=== PATIENT | female | born 1970 | race American Indian/Alaskan Native ===

== ENCOUNTER 2022-02-20 14:07 | Emergency (ER) | payer OTHER ==
[~2022-02-20] VITALS: Ht 167.6 cm; Wt 125.6 kg
[~2022-02-20 14:07] MED LIST: AMIT10 PO; AMIT50 PO; AMOCLA875 PO; ASCO500 PO; Antivert25 MG PO; Ativan1 MG PO; BUSP10 PO; CALCAVITD PO; CRUTCH4 USE; CYCL10 PO; DICL25ER PO; DULO60 PO; FISH1000 PO; FLECTOR PATCH; Flonase 0.05% N16 GM; GABA300 PO; LISI5 PO; LOVA40 PO; MULVITMINF PO; NAPR500 PO; OMEP40CA12 PO; OXYACE5T PO; OXYB5 PO; PRAV20 PO; PRED20 PO; QUET200 PO; RISP.5 PO; TOPI25 PO; TRAM50 PO; Tessalon Perle100 MG PO; VARE1 PO; Zithromax250 MG PO; Zofran Odt4 MG SL
[2022-02-20 14:52] LABS: BASOPHILS ABSOLUTE AUTO 0.09 K/mm3 (0.00-0.23); BASOPHILS PERCENT AUTO 1 % (0-2); EOSINOPHILS ABSOLUTE AUTO 0.23 K/mm3 (0.00-0.68); EOSINOPHILS PERCENT AUTO 2 % (0-6); Hematocrit 47.1 % (33.0-51.0); Hemoglobin 15.8 g/dL (11.5-16.0); IMMATURE GRAN ABSOLUTE AUTO 0.03 K/mm3 (0.00-0.10); IMMATURE GRAN PERCENT AUTO 0 % (0-1); LYMPHOCYTES ABSOLUTE AUTO 3.09 K/mm3 (0.84-5.20); LYMPHOCYTES PERCENT AUTO 30 % (21-46); MONOCYTES ABSOLUTE AUTO 0.55 K/mm3 (0.16-1.47); MONOCYTES PERCENT AUTO 5 % (4-13); Mean Corpuscular HGB 29.8 pg (26.0-34.0); Mean Corpuscular HGB Conc 33.5 g/dL (31.5-36.5); Mean Corpuscular Volume 89 fL (80-100); Mean Platelet Volume 10.7 fL (9.1-12.4); NEUTROPHILS ABSOLUTE AUTO 6.16 K/mm3 (1.96-9.15); NEUTROPHILS PERCENT AUTO 61 % (41-73); Platelet Count 375 K/mm3 (150-400); RDW Coefficient Variation 13.2 % (11.7-14.2); RDW Standard Deviation 43.4 fL (35.1-46.3); White Blood Cell Count 10.15 K/mm3 (4.00-11.30)
[2022-02-20 15:26] LABS: Albumin, Blood 3.7 g/dL (3.4-5.0); Albumin/Globulin Ratio 0.9 (0.8-1.8); Bilirubin, Total 0.5 mg/dL (0.1-1.0); Bun/Creatinine Ratio 22.5 (12.0-20.0); Calcium, Blood 9.5 mg/dL (8.5-10.1); Creatinine, Blood 0.58 mg/dL (0.40-1.00); Globulin, Blood 4.1 g/dL (2.2-4.0); Total Protein, Blood 7.8 g/dL (6.4-8.2)
[2022-02-20] MEDS ORDERED: IBUP800 PO (19:12)
[2022-02-20] MEDS ORDERED: PROM25 PO (19:12)
== END 2022-02-20 19:25 | disposition home or self-care (01) ==
LOC: ER 14:07
PROVIDERS: Physician Assistant
DX: G43.909 Migraine, unspecified, not intractable, without status migrainosus (principal); F17.210 Nicotine dependence, cigarettes, uncomplicated; Z79.52 Long term (current) use of systemic steroids; Z79.899 Other long term (current) drug therapy
CPT/HCPCS: 36415; 70450; 80053; 83690; 85025; J0780; J1200; J1885; J2405

== ENCOUNTER 2023-02-24 04:04 | Observation (INO) | payer OTHER ==
[~2023-02-24] VITALS: Ht 167.6 cm; Wt 119.9 kg
[2023-02-24] VITALS (9 sets, daily range): BP systolic 99–154; BP diastolic 74–107
[~2023-02-24 04:04] MED LIST changes: +IBUP800 PO; +PROM25 PO
[2023-02-24 04:51] LABS: BASOPHILS ABSOLUTE AUTO 0.09 K/mm3 (0.00-0.23); BASOPHILS PERCENT AUTO 1 % (0-2); EOSINOPHILS ABSOLUTE AUTO 0.59 K/mm3 (0.00-0.68); EOSINOPHILS PERCENT AUTO 4 % (0-6); Hematocrit 43.8 % (33.0-51.0); Hemoglobin 14.3 g/dL (11.5-16.0); IMMATURE GRAN ABSOLUTE AUTO 0.07 K/mm3 (0.00-0.10); IMMATURE GRAN PERCENT AUTO 1 % (0-1); LYMPHOCYTES ABSOLUTE AUTO 3.56 K/mm3 (0.84-5.20); LYMPHOCYTES PERCENT AUTO 25 % (21-46); MONOCYTES ABSOLUTE AUTO 0.85 K/mm3 (0.16-1.47); MONOCYTES PERCENT AUTO 6 % (4-13); Mean Corpuscular HGB 29.2 pg (26.0-34.0); Mean Corpuscular HGB Conc 32.6 g/dL (31.5-36.5); Mean Corpuscular Volume 89 fL (80-100); Mean Platelet Volume 10.3 fL (9.1-12.4); NEUTROPHILS ABSOLUTE AUTO 9.05 K/mm3 (1.96-9.15); NEUTROPHILS PERCENT AUTO 64 % (41-73); Platelet Count 370 K/mm3 (150-400); RDW Coefficient Variation 13.9 % (11.7-14.2); White Blood Cell Count 14.21 K/mm3 (4.00-11.30)
[2023-02-24 05:18] LABS: Albumin, Blood 3.6 g/dL (3.4-5.0); Albumin/Globulin Ratio 0.9 (0.8-1.8); Bilirubin, Total 0.2 mg/dL (0.1-1.0); Bun/Creatinine Ratio 27.4 (12.0-20.0); Calcium, Blood 9.1 mg/dL (8.5-10.1); Creatinine, Blood 0.66 mg/dL (0.40-1.00); Globulin, Blood 4.2 g/dL (2.2-4.0); Potassium, Blood 4.1 mmol/L (3.5-5.5); Total Protein, Blood 7.8 g/dL (6.4-8.2)
[2023-02-24] MEDS ORDERED: ATORVASTATIN CA40 M1 PO (08:15)
[2023-02-24] MEDS ORDERED: PIOG30 PO (08:16)
[2023-02-24] MEDS ORDERED: METF500 PO (08:16)
[2023-02-24] MEDS ORDERED: REMERON15 M3 PO (08:17)
[2023-02-24] MEDS ORDERED: NAC600 MG PO (08:17)
[2023-02-24] MEDS ORDERED: TRAZ150T57 PO (08:18)
[2023-02-24] MEDS ORDERED: VENL75ER PO (08:18)
[2023-02-24] MEDS ORDERED: VENL37.5ER PO (08:18)
[2023-02-24] MEDS ORDERED: LORA.5 PO (08:19)
[2023-02-24 09:46] LABS: Anti-Xa UFH, PHA Monitoring <0.10 IU/mL; International Normalized Ratio 0.96; Prothrombin Time Results 10.1 Sec (9.7-11.5)
--- NOTE | 2023-02-24 12:09 | NUR ---
PATIENT ADMIT TO PCU 18. ABLE TO STAND AND TRANSFER IND. DENIES NUMBNESS/TINGLING. PERRLA. ALERT AND ORIENTED X4. ON ROOM AIR SATING ABOVE 95%. PATIENT STATES SHE IS A CURRENT EVERYDAY SMOKER, SMOKING 10-15 CIGERATTES PER DAY. CALLED PLACED TO DR. 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 PATIENT DENIES HAVING ANY CIGARETTES OR LIGHTERS/IGNIGTION SOURCES WITHIN PERSONAL BELONGINGS. LUNGS SOUNDING CLEAR AND DIM IN BASES. EVEN AND UNLABORED RESPIRTATIONS. CLAIMS SHE USED TO HAVE A CPAP BUT DID NOT LIKE WEARING IT AND DOES NOT HAVE IT ANYMORE. TELE SHOWING SR WITH HR 60'S. COMPLAINS OF RIGHT SIDED, NONRADIATING CHEST PRESSURE, STATES SHE FEELS LIKE HER DOG IS SITTING ON HER CHEST. RATES PRESSURE 7/10, IS MORE COMFORTABLE LYING ON RIGHT SIDE. NITRO PASTE APPLIED TO LEFT CHEST. HEPARIN INFUSING PER EMAR. PATIENT REMAINS NPO AT THIS TIME. HEART CATH LATER THIS AFTERNOON. FAMILY HAS BEEN UPDATED. DENIES ABDOMINAL PAIN. STATES SHE HAS INTERMIT NAUSEA. DENIES NEED FOR NAUSEA MEDICATION. BOWEL TONES PRESENT. LAST BOWEL MOVEMENT THIS MORNING. SKIN OVERALL C/D/I. ACHS BLOOD SUGARS. PATIENT REFUSING AFTERNOON INSULIN FOR BLOOD SUGAR OF 201. THIS RN EDUCATED ON NEED FOR INSULIN AND WHY SHE IS CURRENTLY NOT ON HER HOME MEDICATION METFORMIN DUE TO IT INTERACTIONS WITH CONTRAST DYE. PATIENT REFUSING INSULIN. [facility] CALLED FOR MED LIST. THIS RN SPOKE WITH CELESTINA LOPEZ ON PHONE AND PROVIDED UPDATE. CALL LIGHT IN REACH. PATIENT EDUCATED ON CALLING WHEN NEEDING TO USE RESTROOM OR GETTING OUT OF BED, DUE TO FALL RISK WITH HEPARIN GTT. PATIENT ABLE TO VERBALIZE AND TEACH BACK CALL LIGHT INSTRUCTIONS. DENIES NEEDS AT THIS TIME.
[2023-02-24] MEDS ORDERED: MELO7.5 PO (12:30)
[2023-02-24] MEDS ORDERED: LEVSOD100 PO (12:32)
[2023-02-24] MEDS ORDERED: STEGLATRO5 MG PO (12:33)
[2023-02-24] MEDS ORDERED: TRULICITY0.75 MG/01 SC (12:34)
[2023-02-24] MEDS ORDERED: OMEP20ER PO (12:35)
[2023-02-24] MEDS ORDERED: GLIP5 PO (12:36)
[2023-02-24] MEDS ORDERED: SUMA25 PO (12:38)
--- NOTE | 2023-02-24 12:45 | NUR ---
HOME MED REC COMPLETED WITH [facility] FAXED LIST. FAX PLACED IN CHART.
--- NOTE | 2023-02-24 13:59 | NUR ---
PATIENT HAD ABOUT 50ML OF YELLOW/CLEAR EMISIS. REGLAND GIVEN PER EMAR WITH GOOD RELIEF. ECHO BEING DONE AT THIS TIME. PATIENT REMAINS NPO. UP TO BSC WITH NURSE ASSIST.
--- NOTE | 2023-02-24 14:34 | NUR ---
PATIENT TO FORESTRY SUPPORT SPECIALIST AT THIS TIME. ECHO COMPLETED. HEPARIN ON STANDBY
--- NOTE | 2023-02-24 16:44 | NUR ---
PATIENT BACK FROM DIRECTOR SERVICE. VITAL SIGNS STABLE. RIGHT RADIAL SITE, SOFT AND NONTENDER. NO SIGNS OF BLEEDING. TR BAND AND ARM BOARD IN PLACE. POST DIRECTOR SERVICE AND RIGHT RADIAL SITE EDUCATION PROVIDED. PATIENT ABLE TO TEACH BACK RIGHT RADIAL PRECAUTIONS. TR BAND AND ARM BOARD IN PLACE. POST VITALS IN PROGRESS. THIS RN PLACED CALL TO DR. ARECHIGA. VERBAL ORDERS VIA TELEPHONE FOR THIS RN TO DISCONTINUE HEPARIN GTT AND NITRO PASTE. TO INCREASE LIPITOR TO 80 MG PO DAILY, ADD ZETIA 10 MG PO DAILY, AND ADD LIPID PANEL TO MORNING LABS. ORDERS IN PLACE. PHARMACY CALLED AND UPDATED ON DISCONTINING HEPARIN GTT.
--- NOTE | 2023-02-24 19:12 | NUR ---
SHIFT SUMMARY: NO ACUTE CHANGES, SEE PREVIOUS NOTES FOR UPDATES. VITAL SIGNS REMAINS STABLE. SON AND DAUGHTER IN LAW IN TO VISIT. PATIENT ABLE TO EAT SMALL AMOUNT OF CHICKEN NOODLE SOUP FOR DINNER, ALTHOUGH STILL FEELING SLIGHTLY NAUSEAOUS. TELE CONTINUES TO SHOW SR WITH HR 60'S. SBP 140-150'S. TR BAND REMAINS IN PLACE WELL ARM BOARD. RIGHT RADIAL SITE WNL, SOFT AND NONTENDER. CALL LIGHT IN REACH, WATCHING MOVIE AT THIS TIME AND DENIES NEED. REPORTED OFF TO ERWIN OCONNELL AT BEDSIDE.
--- NOTE | 2023-02-24 19:15 | NUR ---
ASSUMPTION OF CARE RECEIVED BEDSIDE REPORT FROM SADI OCONNELL AND ASSUMED PT CARE. PT IS RESTING IN BED WITH LIGHTS DIMMED, ALERT AND ORIENTED, PLEASANT, EXPRESSES INTEREST IN UNDERSTANDING MORE ABOUT TREATMENT PLAN AND LIFESTYLE CHANGES. DENIES PAIN OR OTHER COMPLAINTS AT THIS TIME. STATES "I JUST WANT TO GO TO SLEEP, I'VE HAD A REALLY HARD DAY AND I'VE BEEN AWAKE SINCE EARLY THIS MORNING". VSS, TR BAND CHECKED AND NEARING DEFLATION, SOFT, NO OOZING, SOME TENDERNESS AT THE SITE. WILL CONTINUE PLAN OF CARE AND CONTINUE MONITORING. BELONGINGS AND CALL LIGHT IN REACH.
[2023-02-25 00:42] VITALS: BP 136/75
[2023-02-25 04:05] VITALS: BP 127/72
[2023-02-25 04:35] LABS: Cholesterol 260 mg/dL (50-200); HDL Cholesterol 29 mg/dL (>39); LDL/HDL RATIO 5.7; Low Density Lipoprotein Chol 164 mg/dL (0-110); Triglycerides 334 mg/dL (30-160); Very Low Density Lipoprot Chol 66 mg/dL (6-32)
--- NOTE | 2023-02-25 06:44 | NUR ---
PT HAS RESTED OFF AND ON THROUGH SHIFT, COMPLAINED OF MIGRAINE HEADACHE, CALLED RESIDENT AND RECEIVED ORDER FOR OT IMITREX WITH GOOD EFFECT. NO COMPLAINTS OF CHEST PAIN. TR SITE HAS BEEN FULLY RECOVERED WITH NO COMPLICATIONS. BP IMPROVED TO 130'S/70'S. SPOKE AT LENGTH AND PROVIDE EDUCATION R/T DIABETES AND STRATEGY TO IMPROVE HGB A1C. PT EXPRESSES MOTIVATION WITH THIS HOSPITALIZATION AND SEEKS TO UNDERSTAND. ALSO DISCUSSED SMOKING CESSATION AND ENCOURAGED PT IN HER PLAN TO STOP SMOKING. WILL PROVIDE BEDSIDE REPORT TO ONCOMING RN.
[2023-02-25 07:12] LABS: BASOPHILS ABSOLUTE AUTO 0.09 K/mm3 (0.00-0.23); BASOPHILS PERCENT AUTO 1 % (0-2); EOSINOPHILS ABSOLUTE AUTO 0.28 K/mm3 (0.00-0.68); EOSINOPHILS PERCENT AUTO 2 % (0-6); Hematocrit 41.4 % (33.0-51.0); Hemoglobin 13.6 g/dL (11.5-16.0); IMMATURE GRAN ABSOLUTE AUTO 0.05 K/mm3 (0.00-0.10); IMMATURE GRAN PERCENT AUTO 0 % (0-1); LYMPHOCYTES ABSOLUTE AUTO 2.69 K/mm3 (0.84-5.20); LYMPHOCYTES PERCENT AUTO 16 % (21-46); MONOCYTES PERCENT AUTO 6 % (4-13); Mean Corpuscular HGB 29.6 pg (26.0-34.0); Mean Corpuscular HGB Conc 32.9 g/dL (31.5-36.5); Mean Corpuscular Volume 90 fL (80-100); Mean Platelet Volume 11.2 fL (9.1-12.4); NEUTROPHILS ABSOLUTE AUTO 12.52 K/mm3 (1.96-9.15); NEUTROPHILS PERCENT AUTO 75 % (41-73); Platelet Count 330 K/mm3 (150-400); RDW Standard Deviation 46.1 fL (35.1-46.3); White Blood Cell Count 16.63 K/mm3 (4.00-11.30)
[2023-02-25 07:24] LABS: Bun/Creatinine Ratio 16.3 (12.0-20.0); Calcium, Blood 8.9 mg/dL (8.5-10.1); Creatinine, Blood 0.61 mg/dL (0.40-1.00); Potassium, Blood 3.8 mmol/L (3.5-5.5)
[2023-02-25 07:54] VITALS: BP 138/96
[2023-02-25 11:29] VITALS: BP 139/91
--- NOTE | 2023-02-25 11:47 | NUR ---
PATIENT ALERT AND ORIENTED X4. UP WITH SBA. SHOWER THIS AM. RIGHT RADIAL SITE WNL, TEGADERM IN PLACE. ARM BOARD REMAINS IN PLACE. ON ROOM AIR, SATING ABOVE 95%. TELE SHOWING SR WITH HR 60-70'S. DENIES CHEST PAIN/PRESSURE. DENIES NAUSEA. EATING AND DRINKING WNL. VITALS SIGNS STABLE. KIDS AT BEDSIDE. DR. JORDAN IN TO SEE PATIENT THIS AM, CLEARED FOR DISCHARGE. DR. HANCOCK AND TEAM IN TO SEE PATIENT. EDUCATION REGARDING DIABETES, INSULIN, BLOOD SUGAR CHECKS AND SMOKING CESSATION DISCUSSED. THIS RN PROVIDED EDUCATION AND DEMONSTRATION ON INSULIN INJECTION. PATIENT ABLE TO TEACH BACK AFTERNOON INSULING DEMONSTRATION BY INJECTING AFTERNOON DOSE HERSELF. KIDS AT BEDSIDE FOR DIBETES AND INSULIN EDUCATION. NICOTINE PATCH IN PLACE. CALL LIGHT IN REACH. DENIES NEEDS AT THIS TIME.
[2023-02-25] MEDS ORDERED: ATOR80 PO (14:31)
[2023-02-25] MEDS ORDERED: CLOP75 PO (14:37)
[2023-02-25] MEDS ORDERED: ASPI81CH PO (14:37)
[2023-02-25] MEDS ORDERED: EZET10 PO (14:38)
[2023-02-25] MEDS ORDERED: METO25ER PO (14:38)
[2023-02-25] MEDS ORDERED: INSULANPEN SC (14:43)
[2023-02-25] MEDS ORDERED: PANT20 PO (14:45)
[2023-02-25] MEDS ORDERED: Chantix1 MG PO (14:47)
--- NOTE | 2023-02-25 16:03 | NUR ---
DISCHARGE INSTRUCTIONS REVIEWED WITH PATIENT AND KIDS AT BEDSIDE. DR. HANCOCK IN TO DISCUSS NEW INSULIN DOSAGE, BLOOD SUGARS AND SLIDING SCALE. THIS RN EDUCATED ON NEW MEDICATIONS, DOSAGE CHANGES, BLOOD SUGAR CHECKS, INSULIN SLIDING SCALE FOR GLARGINE, HOW TO GIVE INSULIN, SIDE EFFECTS OF INSULIN, DOCUMENTING BLOOD SUGARS WHEN TAKING 3 TIMES A DAY AND LOW/HIGH BLOOD SUGAR SYMPTOMS. WE ALSO DISCUSSED NUTRITION AND BLOOD SUGAR/A1C GOALS. PATIENT ABLE TO TEACH BACK MEDICATIONS. SLIDING SCALE PROVIDED BY DR. HANCOCK. DIABETIC EDUCATION PRINTED FROM BOTH [facility] AND [facility]. PATIENT ALSO EDUCATED ON NEW CARDIAC MEDICATIONS, DOCUMENTING BLOOD PRESSURE, STENT CARD, IMPORTANCE OF PLAVIX AND ASPIRIN, AND RIGHT RADIAL SITE PRECAUTIONS. RADIAL SITE WNL. ARM BOARD REMAINS IN PLACE. PATIENT SENT HOME WITH DISCHARGE INSTRUCTIONS, EDUCATION, STENT CARD, PRESCRIPTION FOR GLUCOMETER, LANCETS, NEEDLES AND TEST STRIPS. PRESCRIPTION FOR WORK RELEASE FOR ONE WEEK. AND SLIDING SCALE PROVIDED BY DR. HANCOCK. PATIENT LEFT UNIT WITH ALL PERSONAL BELONGINGS INCLUDING DISCHARGE PACKET. CARDIAC REFFERAL IN PLACE, [facility]. PATIENT TO HOT [facility] [place] PRESS OFFBEARER MEDICATIONS FROM [facility].
== END 2023-02-25 16:12 | disposition home or self-care (01) ==
LOC: ER 04:04 → MEDS 04:05 → PCU 04:05
PROVIDERS: Student in an Organized Health Care Education/Training Program; ADMIT Hospitalist
DX: I21.4 Non-ST elevation (NSTEMI) myocardial infarction (principal); E11.9 Type 2 diabetes mellitus without complications; F17.200 Nicotine dependence, unspecified, uncomplicated; E03.9 Hypothyroidism, unspecified; I10 Essential (primary) hypertension; E78.5 Hyperlipidemia, unspecified
CPT/HCPCS: 36415; 71045; 71260; 76937; 80048; 80053; 80061; 82947; 83036; 84484; 85025; 85347; 85379; 85520; 85610; 85730; 93005; 93010; 93454; 96374-59; 96375; 96375-59; 96376; 99152; 99153; 99285-25; A9270; C1725; C1769; C1874; C1887; C1894; C8929; C9600; G0378; J1644; J2250; J2405; J2765; J3010; J7050; Q9957; Q9967

== ENCOUNTER → 2024-12-05 | Outpatient (CLI) | payer OTHER ==
[~2024-12-05] MED LIST changes: +ASPI81CH PO; +ATOR80 PO; +ATORVASTATIN CA40 M1 PO; +CLOP75 PO; +Chantix1 MG PO; +EZET10 PO; +GLIP5 PO; +INSULANPEN SC; +LEVSOD100 PO; +LIDO700A20 TOP; +LORA.5 PO; +MELO7.5 PO; +METF500 PO; +METO25ER PO; +NAC600 MG PO; +OMEP20ER PO; +PANT20 PO; +PIOG30 PO; +REMERON15 M3 PO; +STEGLATRO5 MG PO; +SUMA25 PO; +TRAZ150T57 PO; +TRULICITY0.75 MG/01 SC; +VENL37.5ER PO; +VENL75ER PO
[2024-12-05 14:23] LABS: BASOPHILS ABSOLUTE AUTO 0.07 K/mm3 (0.00-0.23); BASOPHILS PERCENT AUTO 1 % (0-2); EOSINOPHILS ABSOLUTE AUTO 0.23 K/mm3 (0.00-0.68); EOSINOPHILS PERCENT AUTO 3 % (0-6); Hematocrit 42.8 % (33.0-51.0); Hemoglobin 13.8 g/dL (11.5-16.0); IMMATURE GRAN ABSOLUTE AUTO 0.02 K/mm3 (0.00-0.10); IMMATURE GRAN PERCENT AUTO 0 % (0-1); LYMPHOCYTES ABSOLUTE AUTO 2.56 K/mm3 (0.84-5.20); LYMPHOCYTES PERCENT AUTO 28 % (21-46); MONOCYTES ABSOLUTE AUTO 0.61 K/mm3 (0.16-1.47); MONOCYTES PERCENT AUTO 7 % (4-13); Mean Corpuscular HGB 29.7 pg (26.0-34.0); Mean Corpuscular HGB Conc 32.2 g/dL (31.5-36.5); Mean Corpuscular Volume 92 fL (80-100); Mean Platelet Volume 10.7 fL (9.1-12.4); NEUTROPHILS ABSOLUTE AUTO 5.69 K/mm3 (1.96-9.15); NEUTROPHILS PERCENT AUTO 62 % (41-73); Platelet Count 298 K/mm3 (150-400); RDW Coefficient Variation 13.9 % (11.7-14.2); RDW Standard Deviation 47.3 fL (35.1-46.3); Red Blood Cell Count 4.65 M/mm3 (3.80-5.20); White Blood Cell Count 9.18 K/mm3 (4.00-11.30)
[2024-12-05 15:19] LABS: Alanine Aminotransfer (ALT/SGP 35 U/L (12-78); Albumin, Blood 3.7 g/dL (3.4-5.0); Alk Phos 92 U/L (50-136); Anion Gap 8 mmol/L (3-11); Aspartate Aminotrans (AST/SGOT 15 U/L (12-37); Bilirubin, Total 0.2 mg/dL (0.1-1.0); Blood Urea Nitrogen 14 mg/dL (8-24); Bun/Creatinine Ratio 18.1 (12.0-20.0); CHOL/HDL RATIO 4.8; CO2, Blood 24 mmol/L (21-32); Chloride, Blood 114 mmol/L (98-108); Cholesterol 149 mg/dL (50-200); Creatinine, Blood 0.77 mg/dL (0.40-1.00); Globulin, Blood 3.8 g/dL (2.2-4.0); Glomerular Filtration Rate 92 (60-); Glucose, Blood 146 mg/dL (70-99); HDL Cholesterol 31 mg/dL (>39); Low Density Lipoprotein Chol 94 mg/dL (0-110); Potassium, Blood 3.8 mmol/L (3.5-5.5); Sodium, Blood 142 mmol/L (136-145); Total Protein, Blood 7.5 g/dL (6.4-8.2); Triglycerides 119 mg/dL (30-160); Very Low Density Lipoprot Chol 23 mg/dL (6-32)
== END ==
LOC: LAB SHORT 12:31 → LAB 12:31
PROVIDERS: Student in an Organized Health Care Education/Training Program
DX: E11.42 Type 2 diabetes mellitus with diabetic polyneuropathy (principal); E78.2 Mixed hyperlipidemia; I10 Essential (primary) hypertension; Z79.4 Long term (current) use of insulin
CPT/HCPCS: 80053; 80061; 83036; 85025

== ENCOUNTER 2025-01-31 11:10 | Emergency (ER) | payer OTHER ==
[~2025-01-31] VITALS: Ht 167.6 cm; Wt 98.4 kg
[2025-01-31 11:16] VITALS: BP 118/66
[2025-01-31] MEDS ORDERED: Ketorolac Tromethamine 30mg Vial IV ONE (11:25)
[2025-01-31] MEDS ORDERED: Ondansetron HCl 2 MG / ML 2ML Vial IV ONE (11:25)
[2025-01-31 11:38] LABS: BASOPHILS ABSOLUTE AUTO 0.08 K/mm3 (0.00-0.23); BASOPHILS PERCENT AUTO 1 % (0-2); EOSINOPHILS ABSOLUTE AUTO 0.28 K/mm3 (0.00-0.68); EOSINOPHILS PERCENT AUTO 2 % (0-6); Hematocrit 44.2 % (33.0-51.0); Hemoglobin 14.8 g/dL (11.5-16.0); IMMATURE GRAN ABSOLUTE AUTO 0.05 K/mm3 (0.00-0.10); IMMATURE GRAN PERCENT AUTO 0 % (0-1); LYMPHOCYTES ABSOLUTE AUTO 3.26 K/mm3 (0.84-5.20); LYMPHOCYTES PERCENT AUTO 24 % (21-46); MONOCYTES ABSOLUTE AUTO 0.67 K/mm3 (0.16-1.47); MONOCYTES PERCENT AUTO 5 % (4-13); Mean Corpuscular HGB Conc 33.5 g/dL (31.5-36.5); Mean Corpuscular Volume 88 fL (80-100); NEUTROPHILS ABSOLUTE AUTO 9.02 K/mm3 (1.96-9.15); NEUTROPHILS PERCENT AUTO 68 % (41-73); NRBC ABSOLUTE 0.00 K/mm3 (0.00-0.02); NRBC Auto 0.0 /100 WBC (0.0-0.2); Platelet Count 343 K/mm3 (150-400); RDW Coefficient Variation 14.0 % (11.7-14.2); RDW Standard Deviation 44.7 fL (35.1-46.3)
[2025-01-31 11:53] LABS: Alanine Aminotransfer (ALT/SGP 29.0 U/L (12-78); Albumin, Blood 4.2 g/dL (3.4-5.0); Albumin/Globulin Ratio 1.1 (0.8-1.8); Anion Gap 7.0 mmol/L (3-11); Aspartate Aminotrans (AST/SGOT 19.0 U/L (12-37); Bilirubin, Total 0.5 mg/dL (0.1-1.0); Blood Urea Nitrogen 14.0 mg/dL (8-24); CO2, Blood 23.0 mmol/L (21-32); Calcium, Blood 9.9 mg/dL (8.5-10.1); Chloride, Blood 113.0 mmol/L (98-108); Creatinine, Blood 0.76 mg/dL (0.40-1.00); Globulin, Blood 3.9 g/dL (2.2-4.0); Glucose, Blood 138.0 mg/dL (70-99); Potassium, Blood 4.1 mmol/L (3.5-5.5); Sodium, Blood 139.0 mmol/L (136-145); Total Protein, Blood 8.1 g/dL (6.4-8.2)
[2025-01-31 12:08] LABS: Source, Urine Voided
[2025-01-31 12:11] LABS: Bilirubin, Urine Neg (Neg); Color, Urine Yellow (P-Yellow); Glucose Qualitative, Urine Neg (Neg); Ketones, Urine Neg (Neg); Leukocyte Esterase, Urine 1+ (Neg); Protein, Urine 1+ (Neg); Specific Gravity, Urine 1.010 (1.003-1.022); Urobilinogen, Urine NORM (Normal)
[2025-01-31 12:21] LABS: Red Blood Cells, Urine 0-2 /hpf (0-2)
[2025-01-31] MEDS ORDERED: IBUP600 PO (13:13)
[2025-01-31] MEDS ORDERED: ONDA4ODT MM (13:13)
== END 2025-01-31 13:10 | disposition home or self-care (01) ==
LOC: ER 11:10
PROVIDERS: Emergency Medicine
DX: R10.31 Right lower quadrant pain (principal); I25.2 Old myocardial infarction; E03.9 Hypothyroidism, unspecified; M19.90 Unspecified osteoarthritis, unspecified site; F17.200 Nicotine dependence, unspecified, uncomplicated; Z79.82 Long term (current) use of aspirin; Z79.4 Long term (current) use of insulin; Z79.02 Long term (current) use of antithrombotics/antiplatelets; Z79.899 Other long term (current) drug therapy; Z79.84 Long term (current) use of oral hypoglycemic drugs
CPT/HCPCS: 74177; 80053; 81001; 81025; 82947; 83690; 85025; 87077; 87086; 87186; 93005; 93010; 96374; 96375; 99284-25; J1885; J2405; Q9967